=== PATIENT | male | born 1995 | race Two or more races ===

== ENCOUNTER 2024-07-09 19:30 | Emergency (ER) | payer SELFPAY ==
[~2024-07-09] VITALS: Ht 162.6 cm; Wt 50.0 kg
[2024-07-09 20:09] LABS: Basophils # (auto) 0 10 ^3/uL (0-0.2); Basophils % (auto) 0.6 % (0.0-2.0); Eosinophils # (auto) 0.1 10 ^3/uL (0-0.8); Eosinophils % (auto) 0.8 % (0.0-7.0); Hematocrit 46.6 % (41.0-53.0); Hemoglobin 15.6 g/dL (13.5-17.5); Lymphocytes # (auto) 2.1 10 ^3/uL (0.4-5.4); Lymphocytes % (auto) 23.4 % (10.0-50.0); Mean Corpuscular Hgb Conc. 33.6 g/dL (32.0-36.0); Mean Corpuscular Volume 95.4 fL (80.0-100.0); Monocytes # (auto) 0.5 10 ^3/uL (0-1.3); Monocytes % (auto) 5.8 % (0.0-12.0); Neutrophils # (auto) 6.2 10 ^3/uL (1.6-8.6); Neutrophils % (auto) 69.4 % (37.0-80.0); Platelet Count (auto) 334 10^3/uL (140-450); Red Blood Cells 4.88 10^6/uL (4.5-5.90); Red Cell Distribution Width 13.1 % (11.8-14.3); White Blood Cell 8.9 10^3/uL (4.4-10.8)
[2024-07-09 20:12] VITALS: PULSE 72; RESP 17; O2SAT 100
[2024-07-09 20:26] LABS: Alanine Aminotransferase 25 U/L (7-40); Alkaline Phosphatase 88 U/L (46-116); Anion Gap 9 (5-15); Aspartate Aminotransferase 28 U/L (13-40); BUN/Creatinine Ratio 17.2 (10.0-20.0); Blood Urea Nitrogen 17 mg/dL (9-23); Carbon Dioxide 28 mmol/L (20-31); Chloride 104 mmol/L (98-107); Glucose 97 mg/dL (74-106); Lipase 39 U/L (12-53); Sodium 141 mmol/L (136-145); Total Protein 7.3 g/dL (5.7-8.2)
[2024-07-09 20:27] LABS: Bilirubin, Total 0.8 mg/dL (0.2-1.0)
[2024-07-09 20:29] LABS: Calcium 10.6 mg/dL (8.7-10.4)
[2024-07-09 20:30] LABS: Albumin 4.9 g/dL (3.2-4.8)
--- NOTE | 2024-07-09 20:35 | DVH ---
CHEST RADIOGRAPH Indication: Shortness of breath Technique: Single frontal view of the chest was obtained COMPARISON: None FINDINGS: Lines and Tubes: None Lungs: Clear Pleura: No effusion. No pneumothorax. Cardiomediastinal contours: Unremarkable Bones: Unremarkable IMPRESSION: No abnormality demonstrated.
[2024-07-09 20:51] LABS: Erythrocyte Sedimentation Rate 2 mm/hr (0-20)
[2024-07-09 21:19] LABS: Urine Bacteria None Seen /hpf (None Seen)
[2024-07-09 21:45] LABS: Urine Blood Negative /uL (Negative); Urine Clarity Clear (Clear); Urine Color Light-Yellow (Yellow); Urine Protein, UAD Negative (Negative); Urine Specific Gravity 1.012 (1.001-1.035); Urine Squamous Epithelial Cell None Seen /hpf (<5); Urine Urobilinogen Normal (Negative); Urine WBC 2 /HPF (0-3); Urine pH 7.5 (5.0-9.0)
[2024-07-09 22:00] VITALS: BP 107/55; PULSE 65; RESP 13; TEMP 98; O2SAT 99
--- NOTE | 2024-07-09 22:17 | ED.PDOC ---
Altered Mental Status HPI Comments This patient is a pleasant 29-year-old male who was brought to the ED today for evaluation of multiple syncopal events at home approximately 1 hour prior to arrival. Patient was in a emotional conversation with a family member when he stood up, passed out, came to and stirrup began, and passed out again. At time of evaluation, patient is asymptomatic. Patient states he thinks it may have been related to anxiety due to the conversation. Patient denies any history of intracranial concerns or syncopal events. Vital signs were stable on arrival. Chief Complaint: Syncope Time Seen by MD: 19:50 Reviewed Notes: Nurses Notes, Conveyor Loader Notes Allergies: Coded Allergies: NO KNOWN ALLERGIES (Unverified , 07/09/24) Information Source: Patient, Emergency Med Personnel Mode of Arrival: Ambulatory Severity: Moderate Timing: Minutes Duration: Minutes Prehospital treatment: 12 Lead EKG Quality: None Recent: None History of: None Associated Signs and Symptoms: None Past Medical History PAST MEDICAL HISTORY: Denies Surgical History: Denies all surgeries Family History Family History: Reviewed,noncontributory to illness, No family hx of Cancer, No family hx of DM, No family hx of Heart waldemar, No family hx of HTN, No family hx ofKidney waldemar, No family hx of Liver waldemar, No family hx of Lung waldemar, No family hx of Stroke Social History Smoker: Non-Smoker Alcohol: Denies ETOH Use Drugs: Denies Drug Use Lives In: Home Constitutional: denies: chills, diaphoresis, fatigue, fever, malaise, sweats, weakness, others EENTM: denies: blurred vision, double vision, ear bleeding, ear discharge, ear drainage, ear pain, ear ringing, eye pain, eye redness, hearing loss, mouth pain, mouth swelling, nasal discharge, nose bleeding, nose congestion, nose pain, photophobia, tearing, throat pain, throat swelling, voice changes, others Respiratory: denies: cough, hemoptysis, orthopnea, SOB at rest, shortness of breath, SOB with excertion, stridor, wheezing, others Cardiovascular: denies: chest pain, dizzy spells, diaphoresis, Dyspnea on exertion, edema, irregular heart beat, left arm pain, lightheadedness, palpitations, PND, syncope, others Gastrointestinal: denies: abdomen distended, abdominal pain, blood streaked bowels, constipated, diarrhea, dysphagia, difficulty swallowing, hematemesis, melena, nausea, poor appetite, poor fluid intake, rectal bleeding, rectal pain, vomiting, others Genitourinary: denies: burning, dysuria, flank pain, frequency, hematuria, incontinence, penile discharge, penile sore, pain, testicle pain, testicle swelling, urgency, others Neurological: reports: fainting; denies: dizziness, headache, left sided numbness, left sided weakness, numbness, paresthesia, pre-existing deficit, right sided numbness, right sided weakness, seizure, speech problems, tingling, tremors, weakness, others Musculoskeletal: denies: back pain, gout, joint pain, joint swelling, muscle pain, muscle stiffness, neck pain, others Integumetry: denies: bruises, change in color, change in hair/nails, dryness, laceration, lesions, lumps, rash, wounds, others Allergic/Immunocompromised: denies: Difficulty Healing, Frequent Infections, Hives, Itching, others Hematologic/Lymphatic: denies: anemia, blood clots, easy bleeding, easy bruising, swollen glands, others Endocrine: denies: excessive hunger, excessive sweating, excessive thirst, excessive urination, flushing, intolerance to cold, intolerance to heat, unexplained weight gain, unexplained weight loss, others Psychiatric: denies: anxiety, bipolar disorder, depression, hopeless, panic disorder, schizophrenia, sleepless, suicidal, others Physical Exam General Appearance: No Apparent Distress (Patient no distress at time of evalua tion. Patient did not display any altered mental status and looked healthy.), Normal HEENT: Normal ENT Inspection, Pharynx Normal, TMs Normal Neck: Full Range of Motion, Non-Tender, Normal, Normal Inspection Respiratory: Chest Non-Tender, Lungs Clear, No Accessory Muscle Use, No Respiratory Distress, Normal Breath Sounds Cardiovascular: No Edema, No JVD, No Murmur, No Gallop, Normal Peripheral Pulses, Regular Rate/Rhythm Breast Exam: Deferred Gastrointestinal: No Organomegaly, Non Tender, No Pulsatile Mass, Normal Bowel Sounds, Soft Genitalia: Deferred Pelvic: Deferred Rectal: Deferred Extremities: No calf tenderness, Normal capillary refill, Normal inspection, Normal range of motion, Non-tender, No pedal edema Neurologic: Alert, No Motor Deficits, Normal Affect, Normal Mood, No Sensory Deficits Cerebellar Function: Normal Reflexes: Normal Skin: Dry, Normal Color, Warm Lymphatic: No Adenopathy Was a procedure done? Was a procedure done?: No Differential Diagnosis (ALOC) Differential Diagnosis: Dehydration, Hypoglycemia, Encephalopathy, Other ( Pneumonia, vasovagal) X-Ray, Labs, Meds, VS Vital Signs Date Time Temp Pulse Resp B/P (MAP) Pulse Ox O2 Delivery O2 Flow Rate FiO2 07/09/24 20:12 72 17 100 Room Air* 0 21 07/09/24 20:12 98.1 72 17 118/69 (85) 100 98.1 07/09/24 19:37 80 07/09/24 19:30 98.2 58 18 112/67 (82) 97 98.2 Lab Test 07/09/24 21:00 07/09/24 20:29 07/09/24 20:20 07/09/24 19:43 Range/Units Urine Color Light-yellow Yellow Urine Clarity Clear Clear Urine pH 7.5 5.0-9.0 Urine Specific [place] 1.012 1.001-1.035 Urine Protein Negative Negative Urine Ketones Negative Negative Urine Blood Negative Negative /uL Urine Nitrite Negative Negative Urine Bilirubin Negative Negative Urine Urobilinogen Normal Negative mg/dL Urine Leukocyte Esterase Negative Negative /uL Urine RBC 1 0 - 3 /hpf Urine Microscopic WBC 2 0-3 /HPF Urine Squamous Epithelial Cells None seen <5 /hpf Urine Bacteria None seen None Seen /hpf Urine Glucose Normal Normal mg/dL Lactic Acid Level 1.1 0.4-2.0 mmol/L POC Glucose 95 70-106 mg/dl White Blood Count 8.9 4.4-10.8 10^3/uL Red Blood Count 4.88 4.5-5.90 10^6/uL Hemoglobin 15.6 13.5-17.5 g/dL Hematocrit 46.6 41.0-53.0 % Mean Corpuscular Volume 95.4 80.0-100.0 fL Mean Corpuscular Hemoglobin 32.0 28.0-32.0 pg Mean Corpuscular Hemoglobin Concent 33.6 32.0-36.0 g/dL Red Cell Distribution Width 13.1 11.8-14.3 % Platelet Count 334 140-450 10^3/uL Mean Platelet Volume 6.7 L 6.9-10.8 fL Neutrophils (%) (Auto) 69.4 37.0-80.0 % Lymphocytes (%) (Auto) 23.4 10.0-50.0 % Monocytes (%) (Auto) 5.8 0.0-12.0 % Eosinophils (%) (Auto) 0.8 0.0-7.0 % Basophils (%) (Auto) 0.6 0.0-2.0 % Neutrophils # (Auto) 6.2 1.6-8.6 10 ^3/uL Lymphocytes # (Auto) 2.1 0.4-5.4 10 ^3/uL Monocytes # (Auto) 0.5 0-1.3 10 ^3/uL Eosinophils # (Auto) 0.1 0-0.8 10 ^3/uL Basophils # (Auto) 0 0-0.2 10 ^3/uL Nucleated Red Blood Cells 0.0 % Erythrocyte Sedimentation Rate 2 0-20 mm/hr Sodium Level 141 136-145 mmol/L Potassium Level 4.0 3.5-5.1 mmol/L Chloride Level 104 98-107 mmol/L Carbon Dioxide Level 28 20-31 mmol/L Anion Gap 9 5-15 Blood Urea Nitrogen 17 9-23 mg/dL Creatinine 0.99 0.700-1.30 mg/dL Glomerular Filtration Rate Calc 107 >90 mL/min BUN/Creatinine Ratio 17.2 10.0-20.0 Serum Glucose 97 74-106 mg/dL Calcium Level 10.6 H 8.7-10.4 mg/dL Total Bilirubin 0.8 0.2-1.0 mg/dL Aspartate Amino Transferase (AST) 28 13-40 U/L Alanine Aminotransferase (ALT) 25 7-40 U/L Alkaline Phosphatase 88 46-116 U/L Troponin I High Sensitivity < 3 L </=54 ng/L Total Protein 7.3 5.7-8.2 g/dL Albumin 4.9 H 3.2-4.8 g/dL Lipase 39 12-53 U/L X-Ray, Labs, Meds, VS Comment All studies performed the ED were evaluated by me personally. Laboratories were unremarkable for any systemic process. Chest x-ray was unremarkable for any consolidation or signs of intrapulmonary concerns. EKG revealed a sinus arrhythmia with a rate of 80. Biatrial enlargement, RSR in V1 and V2 as well as a CA interval of 167 and QT interval of 368. Patient was asymptomatic and comfortable throughout his stay. I believe the patient had a vasovagal event, But advised the patient to follow up with his primary care provider for a possible Cardiology referral and evaluation. Advised patient hydrate well and practice healthy nutrition daily. Time of 1ST Reevaluation: 22:15 Reevaluation 1ST: Improved Consultation: PCP Patient Education/Counseling: Diagnosis, Treatment Family Education/Counseling: Diagnosis, Treatment Departure 1 Departure Time of Disposition: 22:16 Impression: Primary Impression: Vasovagal episode Disposition: 01 HOME / SELF CARE / HOMELESS Condition: Stable Additional Instructions: Advised patient practice patient that healthy nutrition throughout. Patient should follow up with his primary care provider for discussions related to today's visit. Patient may benefit from a Cardiology referral and evaluation. Discharged With: Self, Friend Critical Care Note Critical Care Time?: No Stability Stability form required: No Heart Score Heart Score: Heart Score Response (Comments) Value History Slightly Suspicious 0 EKG Repolarization Disturb 1 Age <45 0 Risk Factors No known risk factors 0 Troponin Normal limit 0 Total 1 MONIE MORAN PAC Jul 09, 2024 22:17
--- NOTE | 2024-07-11 10:09 | ECG ---
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
== END 2024-07-09 22:26 | disposition home or self-care (01) ==
LOC: EDBD 19:30 → ER 19:30
DX: R55 Syncope and collapse (principal)
CPT/HCPCS: 36415; 71045; 80053; 81001; 82947; 82962; 83605; 83690; 84484; 85025; 85652; 93005